=== PATIENT | male | born 1980 | race Caucasian/White ===

== ENCOUNTER 2018-01-17 14:40 | Emergency (ER) | payer BC ==
[~2018-01-17] VITALS: Ht 190.5 cm; Wt 100.0 kg
[2018-01-17 14:51] VITALS: BP 114/88
== END 2018-01-17 20:03 | disposition left against medical advice (07) ==
LOC: ER 15:16
DX: M25.511 Pain in right shoulder (principal)
CPT/HCPCS: 99281